=== PATIENT | male | born 1995 | race Caucasian/White ===

== ENCOUNTER 2019-12-08 18:53 | Emergency (ER) | payer BC, OTHER ==
[2019-12-08] MEDS ORDERED: SODIUM CHLORIDE 0.9% 1,000 ML IV STA (19:02)
[2019-12-08 19:03] VITALS: RESP 18
--- NOTE | 2019-12-08 19:13 | ED ---
Recheck HPI - General Chief Complaint: Recheck/Abnormal Lab/Rx Stated Complaint: bleeding from incision Time Seen by Provider: 12/08/19 19:02 Source: patient, RN notes reviewed, old records reviewed Mode of arrival: ambulatory Limitations: physical limitation - History of Present Illness Initial Comments: This is a 24-year-old male DF for evaluation patient with us today for evaluation regards to weakness. Patient is having active bleeding for multiple places, he does have a graft site on his right shoulder that is actively bleeding he had implanted vessels which cadaver his right shoulder area. Patient also has bleeding from his yearly urinary bladder, patient does get Lovenox twice a day to prevent clotting of these vessels. Patient does feel weak and lethargic fatigued, active nausea no vomiting patient feels very weak feels like he could pass out today. MD Complaint: abnormal lab (low HGB) -: days(s) Initial Visit For: other Returns Today for: Called Because of Abnormal Lab/Test (patient believes his HGB is low) Symptoms Since Prior Visit: improved (weakness) Context: called for abnormal lab result (atient feels week and like HGB is low) Associated Symptoms: malaise - Related Data Home Medications Medication Instructions Recorded Confirmed Ascorbic Acid [Vitamin C] 500 mg PO DAILY@1200 09/10/14 09/10/14 Multivitamins, Thera [Multivitamin] 1 tab PO DAILY 09/10/14 09/10/14 Phenytoin Sodium Extended 300 mg PO HS 09/10/14 09/10/14 [Dilantin] Sertraline HCl [Zoloft] 100 mg PO DAILY 09/10/14 09/10/14 oxyCODONE HCL [Oxycodone HCl] 5 mg PO TID PRN 09/10/14 09/10/14 Allergies Allergy/AdvReac Type Severity Reaction Status Date / Time No Known Allergies Allergy Verified 09/10/14 16:25 Review of Systems ROS Statement: Those systems with pertinent positive or pertinent negative responses have been documented in the HPI. ROS Other: All systems not noted in ROS Statement are negative. Past Medical History Past Medical History: Seizure Disorder History of Any Multi-Drug Resistant Organisms: None Reported Additional Past Surgical History / Comment(s): facial reconstruction, trach, peg tube over 55 surgerys arterial graft on right shoulder Past Psychological History: No Psychological Hx Reported Smoking Status: Never smoker Past Alcohol Use History: None Reported Past Drug Use History: None Reported General Exam - General Exam Comments Initial Comments: Patient is pale and diaphoretic Limitations: physical limitation General appearance: alert, in no apparent distress Head exam: Present: atraumatic, normocephalic, normal inspection Eye exam: Present: normal appearance, PERRL, EOMI. Absent: scleral icterus, conjunctival injection, periorbital swelling ENT exam: Present: normal exam, mucous membranes moist Neck exam: Present: normal inspection. Absent: tenderness, meningismus, ly mphadenopathy Respiratory exam: Present: normal lung sounds bilaterally. Absent: respiratory distress, wheezes, rales, rhonchi, stridor Cardiovascular Exam: Present: normal rhythm, tachycardia, normal heart sounds. Absent: systolic murmur, diastolic murmur, rubs, gallop, clicks GI/Abdominal exam: Present: soft, normal bowel sounds. Absent: distended, tenderness, guarding, rebound, rigid Extremities exam: Present: normal inspection, full ROM, normal capillary refill. Absent: tenderness, pedal edema, joint swelling, calf tenderness Back exam: Present: normal inspection Neurological exam: Present: alert, oriented X3, CN II-XII intact Psychiatric exam: Present: normal affect, normal mood Skin exam: Present: warm, dry, intact, normal color. Absent: rash Course Vital Signs 12/08/19 12/08/19 12/08/19 18:55 19:05 19:14 Pulse Rate 112 H 104 H 107 H Respiratory 18 18 18 Rate Blood Pressure 116/88 109/78 119/77 O2 Sat by Pulse 100 100 100 Oximetry 12/08/19 12/08/19 12/08/19 19:20 19:37 19:44 Pulse Rate 101 H 101 H 101 H Respiratory 18 18 18 Rate Blood Pressure 115/75 115/78 125/80 O2 Sat by Pulse 100 100 100 Oximetry 12/08/19 19:51 Pulse Rate 96 Respiratory 18 Rate Blood Pressure 121/76 O2 Sat by Pulse 100 Oximetry - Reevaluation(s) Reevaluation #1: 12/08/19 19:12 Medical record is reviewed Reevaluation #2: 12/08/19 19:12 Patient still feels very weak although mildly improved with fluid hydration here in the ER Reevaluation #3: 12/08/19 20:06 patient feels better though still week , will transfer to [facility] [place] - Consultations Consultation #1: spoke w [facility] for transfer Medical Decision Making - Medical Decision Making 24 male to the ER and here for evaluation of weakness lightheadedness dizziness feels that he may pass out feeling better with IV hydration here in the ER hemoglobin is low he does have active bleed on Lovenox. Patient's bleeding has slowed down minimally here in the ER patient's hemoglobin is a fairly elevated from prior hemoglobins patient will not be transferred to [facility] prior physician - Lab Data Result diagrams: 12/08/19 18:57 12/08/19 18:57 Lab Results 12/08/19 12/08/19 12/08/19 Range/Units 18:57 18:57 18:57 WBC 8.3 (3.8-10.6) k/uL RBC 3.40 L (4.30-5.90) m/uL Hgb 9.2 L (13.0-17.5) gm/dL Hct 28.7 L (39.0-53.0) % MCV 84.4 (80.0-100.0) fL MCH 26.9 (25.0-35.0) pg MCHC 31.9 (31.0-37.0) g/dL RDW 14.9 (11.5-15.5) % Plt Count 273 (150-450) k/uL Neutrophils % 62 % Lymphocytes % 28 % Monocytes % 5 % Eosinophils % 1 % Basophils % 1 % Neutrophils # 5.2 (1.3-7.7) k/uL Lymphocytes # 2.4 (1.0-4.8) k/uL Monocytes # 0.4 (0-1.0) k/uL Eosinophils # 0.1 (0-0.7) k/uL Basophils # 0.0 (0-0.2) k/uL Hypochromasia Marked Poikilocytosis Marked PT 10.7 (9.0-12.0) sec INR 1.0 (<1.2) APTT 24.4 (22.0-30.0) sec Sodium 135 L (137-145) mmol/L Potassium (3.5-5.1) mmol/L Chloride 105 (98-107) mmol/L Carbon Dioxide 20 L (22-30) mmol/L Anion Gap 10 mmol/L BUN 17 (9-20) mg/dL Creatinine 0.62 L (0.66-1.25) mg/dL Est GFR (CKD-EPI)AfAm >90 (>60 ml/min/1.73 sqM) Est GFR (CKD-EPI)NonAf >90 (>60 ml/min/1.73 sqM) Glucose 112 H (74-99) mg/dL Calcium 8.3 L (8.4-10.2) mg/dL Magnesium 2.0 (1.6-2.3) mg/dL Total Bilirubin 0.2 (0.2-1.3) mg/dL AST 40 (17-59) U/L ALT 38 (4-49) U/L Alkaline Phosphatase 104 (38-126) U/L Troponin I (0.000-0.034) ng/mL Total Protein 6.5 (6.3-8.2) g/dL Albumin 3.6 (3.5-5.0) g/dL 12/08/19 Range/Units 18:57 WBC (3.8-10.6) k/uL RBC (4.30-5.90) m/uL Hgb (13.0-17.5) gm/dL Hct (39.0-53.0) % MCV (80.0-100.0) fL MCH (25.0-35.0) pg MCHC (31.0-37.0) g/dL RDW (11.5-15.5) % Plt Count (150-450) k/uL Neutrophils % % Lymphocytes % % Monocytes % % Eosinophils % % Basophils % % Neutrophils # (1.3-7.7) k/uL Lymphocytes # (1.0-4.8) k/uL Monocytes # (0-1.0) k/uL Eosinophils # (0-0.7) k/uL Basophils # (0-0.2) k/uL Hypochromasia Poikilocytosis PT (9.0-12.0) sec INR (<1.2) APTT (22.0-30.0) sec Sodium (137-145) mmol/L Potassium (3.5-5.1) mmol/L Chloride (98-107) mmol/L Carbon Dioxide (22-30) mmol/L Anion Gap mmol/L BUN (9-20) mg/dL Creatinine (0.66-1.25) mg/dL Est GFR (CKD-EPI)AfAm (>60 ml/min/1.73 sqM) Est GFR (CKD-EPI)NonAf (>60 ml/min/1.73 sqM) Glucose (74-99) mg/dL Calcium (8.4-10.2) mg/dL Magnesium (1.6-2.3) mg/dL Total Bilirubin (0.2-1.3) mg/dL AST (17-59) U/L ALT (4-49) U/L Alkaline Phosphatase (38-126) U/L Troponin I <0.012 (0.000-0.034) ng/mL Total Protein (6.3-8.2) g/dL Albumin (3.5-5.0) g/dL Disposition Clinical Impression: Anemia, Weakness, Dehydration Disposition: OTHER INSTITUTION NOT DEFINED Condition: Good Is patient prescribed a controlled substance at d/c from ED?: No Referrals: None,Stated [REFERRING] - 1-2 days - Out of Hospital Transfer - Req. Specs Out of Hospital Transfer - Requested Specifics: Other Emergency Center ([facility])
[2019-12-08 19:38] LABS: ALT 38 U/L (4-49); AST 40 U/L (17-59); African American GFR (CKD) >90 (>60 ml/min/1.73 sqM); Albumin 3.6 g/dL (3.5-5.0); Alkaline Phosphatase 104 U/L (38-126); Anion Gap 10 mmol/L; Blood Urea Nitrogen 17 mg/dL (9-20); Calcium 8.3 mg/dL (8.4-10.2); Carbon Dioxide 20 mmol/L (22-30); Chloride 105 mmol/L (98-107); Glucose 112 mg/dL (74-99); Non-African American GFR(CKD) >90 (>60 ml/min/1.73 sqM); Sodium 135 mmol/L (137-145); Total Bilirubin 0.2 mg/dL (0.2-1.3); Total Protein 6.5 g/dL (6.3-8.2)
[2019-12-08 19:42] LABS: Partial Thromboplastin Time 24.4 sec (22.0-30.0); Prothrombin Time 10.7 sec (9.0-12.0)
[2019-12-08 19:58] LABS: Basophils % (A) 1 %; Eosinophils # (A) 0.1 k/uL (0-0.7); Eosinophils % (A) 1 %; HCT 28.7 % (39.0-53.0); HGB 9.2 gm/dL (13.0-17.5); Hypochromasia Marked; Lymphocytes # (A) 2.4 k/uL (1.0-4.8); Lymphocytes % (A) 28 %; MCH 26.9 pg (25.0-35.0); MCHC 31.9 g/dL (31.0-37.0); MCV 84.4 fL (80.0-100.0); Mean Platelet Volume 12.4; Monocytes # (A) 0.4 k/uL (0-1.0); Monocytes % (A) 5 %; Neutrophils # (A) 5.2 k/uL (1.3-7.7); Neutrophils % (A) 62 %; Platelet Count 273 k/uL (150-450); Poikilocytosis Marked; RDW 14.9 % (11.5-15.5); WBC 8.3 k/uL (3.8-10.6)
[2019-12-08 20:11] VITALS: TEMP 97.7
[2019-12-08] MEDS: GELATIN SPONGE,ABSORB (SMALL) 1 EACH SPONGE TOPICAL STA ×2 (20:11→20:35)
[2019-12-08] MEDS ORDERED: SODIUM CHLORIDE 0.9% 500 ML 500 ML IV ONE (20:35)
[2019-12-08 21:13] VITALS: BP 133/82; PULSE 97
== END 2019-12-08 21:23 | disposition short-term general hospital (02) ==
LOC: EC 18:53
DX: D64.9 Anemia, unspecified (principal); E86.0 Dehydration; R00.0 Tachycardia, unspecified; R61 Generalized hyperhidrosis; L76.22 Postprocedural hemorrhage of skin and subcutaneous tissue following other procedure; G40.909 Epilepsy, unspecified, not intractable, without status epilepticus; Z79.01 Long term (current) use of anticoagulants; Z79.899 Other long term (current) drug therapy; Z95.828 Presence of other vascular implants and grafts
CPT/HCPCS: 36415; 80053; 83735; 84484; 85025; 85610; 85730; 86850; 86900; 86901; 96360; 96361; 99284